=== PATIENT | female | born 1955 | race Caucasian/White ===

== ENCOUNTER 2023-05-26 12:53 | Outpatient (AMB) | payer OTHER, SELFPAY ==
--- NOTE | 2023-05-26 13:05 | MHC.OFFVIS ---
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 Patient states I guess I failed my sleep study test Allergies No Known Allergies Allergy (Verified 05/26/23 13:09) HPI HPI Comments History of Present Illness Details 67 y/o female patient with HTN, HLD and chronic cough presents for new in-person visit for sleep consultation. Pt reports chronic cough, and gasping arousals. She was evaluated by agile coach and supply service worker. Pt reports she was diagnosed with thyroid nodule, and also recommended to have sleep study. Pt had a home sleep study done but it was inconclusive. She does not sleep on her back, sleeps on her side. Pt reports snoring, and frequent arousals, and nocturia. She reports daytime sleepiness and takes a nap occasionally. Sleep questionnaire: Have you ever been diagnosed with a sleep disorder? No. Have you ever had a sleep study in the past? Yes, had a home sleep study done, but it was inconclusive. Have you ever been treated for a sleep disorder? No. Do you take medications for a sleep disorder? No. Do you snore? Yes. Do you wake up gasping at night? Rarely. Do you have episodes of apneas? No. If yes, are they witnessed? No. Do you have episodes of nocturnal chest pain or dyspnea? No. Do you have difficulty initiating sleep? No. Do you have difficulty maintaining sleep? Yes. Do you wake up tired? Yes, sometimes. Do you have headaches upon awakening? Rarely. Do you wake up with dry mouth or throat? Yes. Do you have GERD? Yes. Do you have nocturia? Yes. Do you have nocturnal leg cramps? No. Do you have symptoms of restless legs? No. Do you act out your dreams? No. Sleep hygiene questionnaire: What is your usual sleep routine? Usual bedtime is at 9-10 pm; Usual wake up time is at 7 am. Do you take naps? Yes, sometimes. Is your sleep environment cool, dark, and quiet? Yes. Do you exercise? Two days a week. for an hour. Do you take caffeine or other stimulants? Coffee in the morning. Do you use electronics in bed? Yes. What is your work schedule? two days a week, 10-12 pm. Hypersomnolence questionnaire: Do you have daytime tiredness or fatigue? Yes. Do you easily fall asleep when inactive? Yes. Have you ever had episodes of sudden weakness? No. Have you ever had episodes of sudden weakness associated with strong emotions? No. PFSH Surgical History (Updated 05/26/23 @ 13:10 by ADOLFO Byrne) H/O: hysterectomy History of nephrectomy, right Family History (Updated 05/26/23 @ 13:12 by ADOLFO Byrne) Father Stroke Mother Ovarian cancer Diabetes Brother HTN (hypertension) Hyperlipidemia Social History (Updated 05/26/23 @ 13:12 by ADOLFO Byrne) Alcohol intake: current Patient Tobacco Use Status: Never used Tobacco Review of Systems Const All systems reviewed & are unremarkable except as noted in HPI and below ENT Reports Normal hearing present Neuro Reports Normal hearing present Physical Exam Vital Signs: Last Vital Signs Pulse 87 05/26/23 13:08 BP 124/78 05/26/23 13:08 Pulse Ox 98 05/26/23 13:08 Oxygen Delivery Method Room Air 05/26/23 13:08 BMI result Body Mass Index 31.0 Const General: cooperative Nutritional Appearance: overweight Orientation/consciousness: patient oriented x3 Neck Neck: Yes full ROM and Yes supple Resp Effort & Inspection: normal respiratory effort and able to speak in complete sentences Neuro General: patient oriented x3 Cranial nerves: Yes Bilaterally intact EOM present, Yes Normal facial strength present, Yes Midline tongue present, Yes Symmetric palate elevation present, Yes Normal hearing present and Yes Ability to bilaterally rotate head present Cognition (Neuro): normal cognition Gait exam (Neuro): Antalgic gait present Motor exam (neuro): 5/5 motor strength present throughout, Pronator motor function not present and no tremor noted Psych Appearance: grossly normal Mental Status: mental status grossly normal Speech and movement: Normal speech and movement present Affect: normal affect Attitude: cooperative Assessment & Plan Assessment & Plan (1) Daytime sleepiness: Code(s): R40.0 - Somnolence (2) Chronic cough: Code(s): R05.3 - Chronic cough (3) Snoring: Code(s): R06.83 - Snoring Plan Pt is advised to undergo in lab sleep study to assess for sleep apnea. Will f/u with pt after study to discuss results and appropriate treatment options. Sleep hygiene education provided. Advised patient to limit screen time before bedtime. Pt to call with any worsening concerns or questions. Orders: Orders RT PSG in-lab sleep study Today E04.1 - Nontoxic single thyroid nodule, E66.9 - Obesity, unspecified, R05.3 - Chronic cough, R06.83 - Snoring, R40.0 - Somnolence Coding Level of Care Code New Pt Level 3 (78497) Diagnoses Daytime sleepiness R40.0 Chronic cough R05.3 Snoring R06.83
[2023-05-26 13:08] VITALS: BP 124/78; PULSE 87; O2SAT 98; BMI 31.0
== END 2023-05-26 13:35 | disposition home or self-care (01) ==
LOC: HO.HSMC 12:53
PROVIDERS: PCP Nurse Practitioner Family; Visit Provider Nurse Practitioner Family
DX: R40.0 Somnolence (principal); R05.3 Chronic cough; R06.83 Snoring
CPT/HCPCS: 99203

== ENCOUNTER → 2023-05-26 12:53 | Outpatient (BNVA) | payer OTHER, SELFPAY | PROVIDERS: PCP Nurse Practitioner Family; Visit Provider Nurse Practitioner Family | DX: R40.0 Somnolence (principal); R05.3 Chronic cough; R06.83 Snoring | CPT/HCPCS: 99202 ==

== ENCOUNTER → 2023-06-16 19:30 | Outpatient (REF) | payer OTHER, SELFPAY | LOC: HO.SL 19:30 | PROVIDERS: Visit Provider Nurse Practitioner Family | DX: G47.33 Obstructive sleep apnea (adult) (pediatric) (principal); R06.83 Snoring; R40.0 Somnolence; E66.9 Obesity, unspecified | CPT/HCPCS: 95810 ==

== ENCOUNTER → 2023-06-16 22:05 | Outpatient (BNV) | payer OTHER, SELFPAY | PROVIDERS: Visit Provider Psychiatry & Neurology Neurology | DX: G47.33 Obstructive sleep apnea (adult) (pediatric) (principal) | CPT/HCPCS: 95810 ==

== ENCOUNTER 2024-04-20 13:46 | Outpatient (AMB) | payer OTHER, SELFPAY ==
--- NOTE | 2024-04-20 13:43 | A.OFFVIS_ITS ---
Vital Signs 04/20/24 13:48 Height 5 ft 6 in Weight 193 lb 8 oz BMI 31.2 BP 120/88 Blood Pressure Location Lt brachial Position Sitting Pulse 87 Pulse Source Pulse Oximeter Pulse Oximetry (%) 96 Oxygen Delivery Method Room Air Intake Visit Reasons: chronic cough Allergies No Known Allergies Allergy (Verified 04/20/24 13:52) HPI HPI chronic cough: Details: Talia is a pleasant 68 year old female, minimal smoker with 5 pack year history, with underlying chronic cough, renal cancer s/p right nephrectomy, and uterine fibroid s/p hysterectomy. She was referred by PCP for evaluation. She reports chronic cough since 2021 with occasional wheezing which resolved spontaneously for a few months then restarted a few months ago. She denies history of asthma or prior diagnosis of COPD. PFT 08/2022 spirometry normal, decreased ERV likely related to BMI and normal DLCO. CT chest 05/2023 reported resolution of several small pulmonary nodules and mild bibasliar scarring. She has trialed multiple OTC medications for GERD and allergies with no effect. She reports prior allergy testing many years ago which was positive for multiple allergens. She endorses significant post nasal drip, nasal congestion and watery eyes. She has 3 parakeets at home and has frequent exposure to dog. She reports significant second hand smoke exposure as a child. She reports brother with asthma otherwise no pertinent family history. She was active in the [employer] x 6 years with prolonged exposure to jet fuel. She recently had an endoscopy which was reportedly negative, performed at [facility], will obtain report. She was trialed on omeprazole many years ago for reflux symptoms however discontinued as she was concerned w ith possible nephrotoxic effects. [facility] Surgical History (Updated 05/26/23 @ 13:10 by ADOLFO Byrne) History of nephrectomy, right H/O: hysterectomy Family History (Updated 05/26/23 @ 13:12 by ADOLFO Byrne) Father Stroke Mother Ovarian cancer Diabetes Brother HTN (hypertension) Hyperlipidemia Social History (Updated 04/20/24 @ 13:52 by Krista Echeverria [facility]) Alcohol intake: current Patient Tobacco Use Status: Former Tobacco user Review of Systems Const Denies chills, Denies excessive sweating, Denies fever(s), Denies headache(s) and Denies night sweats Eyes Denies dry eyes, Denies irritation and Denies itchy eyes ENT Reports Normal hearing present and Denies headache(s) Card Denies chest pain, Denies chest pain at rest, Denies chest pain with activity, Denies claudication, Denies leg edema, Denies orthopnea and Denies paroxysmal nocturnal dyspnea Resp Denies chest congestion, Denies pain on inspiration, Denies pain with cough and Denies stridor Musc Denies myalgias Neuro Reports Normal hearing present and Denies headache(s) Endo Denies excessive sweating Roberto Carlos/Lymph Denies lymphadenopathy Aller/Immun Denies itchy eyes and Denies seasonal rhinorrhea Physical Exam Vital Signs: Last Vital Signs Pulse 87 04/20/24 13:48 BP 120/88 04/20/24 13:48 Pulse Ox 96 04/20/24 13:48 Oxygen Delivery Method Room Air 04/20/24 13:48 BMI result Body Mass Index 31.2 Const General: cooperative, healthy appearing, comfortable, no acute distress, well developed and alert Orientation/consciousness: patient oriented x3 Limitations: no limitations HEENT Head: Yes normal to inspection, Yes normocephalic and Yes atraumatic Ears: hearing grossly normal bilaterally and external ears normal Eyes General: appearance normal, both eyes and all related structures Eyelids: Yes eyelids normal Sclerae: sclerae normal EOM: EOMs intact bilaterally Neck Neck: Yes normal visual inspection and Yes no lymphadenopathy Lymphatic: no lymphadenopathy noted Chest Chest palpation & inspection: normal inspection of the chest Resp Other: persistent throat clearing and wet cough throughout visit, bibasilar inspiratory crackles, otherwise clear Effort & Inspection: normal respiratory effort, able to speak in complete sentences, no audible wheezes, no stridor, not tachypneic, no tripod positioning and no use of accessory muscles Cardio Jugular venous distension: no JVD Rate: regular rate Rhythm: regular rhythm Skin Other: warm, dry General skin exam: no rashes or lesions noted Neuro General: patient oriented x3 Cranial nerves: Yes Normal hearing present Cognition (Neuro): normal cognition Gait exam (Neuro): Normal gait present Extrem General: Yes normal to inspection, Yes capillary refill normal, Yes no clubbing, cyanosis or edema and Yes no pedal edema Psych Appearance: grossly normal and well kempt Speech and movement: Normal speech and movement present and Clear speech present Affect: normal affect Attitude: cooperative Thought process: Normal thought process present Thought content: Normal thought content present Insight: Good insight present (Psych) Judgement: Good judgement present (Psych) Assessment & Plan Assessment & Plan (1) Chronic cough: Code(s): R05.3 - Chronic cough Category: Medical (2) Environmental allergies: Code(s): Z91.09 - Other allergy status, other than to drugs and biological substances Category: Medical Plan Talia presents with chronic cough of unclear etiology. PFT normal. Chest CT report revealed mild bibasilar scarring with faint inspiratory crackles on exam, will obtain actual images to review. She reports significant post nasal drip and reflux symptoms, not using any effective treatments. Recent endoscopy reportedly unremarkable, will obtain reports. Will send for RAST to assess for an allergic component including IgE to birds. Will also trial nasal ipratriopium for post nasal drip. All questions were answered and patient is in agreement of plan. Will follow up to review results or sooner if needed. Orders: Orders Complete Blood Count Auto Diff Today Z91.09 - Other allergy status, other than to drugs and biological substances Immunoglobulin E Today Z91.09 - Other allergy status, other than to drugs and biological substances AMB Office Procedure Misc Today Z91.09 - Other allergy status, other than to drugs and biological substances Resp Allergy Profile Region I Today Z91.09 - Other allergy status, other than to drugs and biological substances Medications: New ipratropium bromide administer into each nostril 2 sprays intranasal BID 30 mL 2RF Coding Level of Care Code New Pt Level 4 (65793) Diagnoses Chronic cough R05.3 Environmental allergies Z91.09
[2024-04-20 13:48] VITALS: BP 120/88; PULSE 87; O2SAT 96; BMI 31.2
== END 2024-04-20 14:40 | disposition home or self-care (01) ==
PROVIDERS: PCP Nurse Practitioner Family; Referring Provider Nurse Practitioner Family; Visit Provider Nurse Practitioner Family
DX: R05.3 Chronic cough (principal); Z91.09 Other allergy status, other than to drugs and biological substances
CPT/HCPCS: 99204

== ENCOUNTER → 2024-04-20 13:46 | Outpatient (BNVA) | payer OTHER, SELFPAY | PROVIDERS: PCP Nurse Practitioner Family; Referring Provider Nurse Practitioner Family; Visit Provider Nurse Practitioner Family | DX: R05.3 Chronic cough (principal); Z91.09 Other allergy status, other than to drugs and biological substances | CPT/HCPCS: 99202 ==

== ENCOUNTER 2024-04-26 08:44 | Outpatient (REF) | payer OTHER, SELFPAY | END 2024-04-26 08:45 | disposition home or self-care (01) | LOC: CF 08:44 | DX: Z13.89 Encounter for screening for other disorder (principal) ==

== ENCOUNTER 2024-05-25 15:14 | Outpatient (AMB) | payer OTHER, SELFPAY ==
[2024-05-25 15:16] VITALS: BP 130/78; PULSE 95; O2SAT 97; BMI 31.5
--- NOTE | 2024-05-25 15:16 | A.OFFVIS_ITS ---
Vital Signs 05/25/24 15:16 Height 5 ft 6 in Weight 195 lb BMI 31.5 BP 130/78 Blood Pressure Location Rt brachial Position Sitting Pulse 95 Pulse Source Pulse Oximeter Pulse Oximetry (%) 97 Oxygen Delivery Method Room Air Intake Visit Reasons: chronic cough Allergies No Known Allergies Allergy (Verified 05/25/24 15:20) HPI HPI chronic cough: Details: Talia is a pleasant 68 year old female, minimal smoker with 5 pack year history, with underlying chronic cough, renal cancer s/p right nephrectomy, and uterine fibroid s/p hysterectomy. She reports chronic cough since 2021 with occasional wheezing which resolved spontaneously for a few months then restarted a few months ago. At the last visit, offered trialing an inhaler however declined. Today she is interested in trialing as she had minimal response to ipratropium nasal spray. She also notes prior dx of severe ORIANA, AHI 79, and has not been consistent with use as she has had difficulties with mask. [facility] Surgical History (Updated 05/26/23 @ 13:10 by ADOLFO Byrne) History of nephrectomy, right H/O: hysterectomy Family History (Updated 05/26/23 @ 13:12 by ADOLFO Byrne) Father Stroke Mother Ovarian cancer Diabetes Brother HTN (hypertension) Hyperlipidemia Social History Alcohol intake: current Patient Tobacco Use Status: Former Tobacco user Review of Systems Const Denies chills, Denies excessive sweating, Denies fever(s), Denies headache(s) and Denies night sweats Eyes Denies dry eyes, Denies irritation and Denies itchy eyes ENT Reports Normal hearing present and Denies headache(s) Card Denies chest pain, Denies chest pain at rest, Denies chest pain with activity, Denies claudication, Denies leg edema, Denies orthopnea and Denies paroxysmal nocturnal dyspnea Resp Denies chest congestion, Denies pain on inspiration, Denies pain with cough and Denies stridor Musc Denies myalgias Neuro Reports Normal hearing present and Denies headache(s) Endo Denies excessive sweating Roberto Carlos/Lymph Denies lymphadenopathy Aller/Immun Denies itchy eyes and Denies seasonal rhinorrhea Physical Exam Vital Signs: Last Vital Signs Pulse 95 05/25/24 15:16 BP 130/78 05/25/24 15:16 Pulse Ox 97 05/25/24 15:16 Oxygen Delivery Method Room Air 05/25/24 15:16 BMI result Body Mass Index 31.5 Const General: cooperative, healthy appearing, comfortable, no acute distress, well developed and alert Orientation/consciousness: patient oriented x3 Limitations: no limitations HEENT Head: Yes normal to inspection, Yes normocephalic and Yes atraumatic Ears: hearing grossly normal bilaterally and external ears normal Eyes General: appearance normal, both eyes and all related structures Eyelids: Yes eyelids normal Sclerae: sclerae normal EOM: EOMs intact bilaterally Neck Neck: Yes normal visual inspection and Yes no lymphadenopathy Lymphatic: no lymphadenopathy noted Chest Chest palpation & inspection: normal inspection of the chest Resp Effort & Inspection: normal respiratory effort, able to speak in complete s entences, no audible wheezes, no stridor, not tachypneic, no tripod positioning and no use of accessory muscles Auscultation: clear to auscultation bilaterally Cardio Jugular venous distension: no JVD Rate: regular rate Rhythm: regular rhythm Skin Other: warm, dry General skin exam: no rashes or lesions noted Neuro General: patient oriented x3 Cranial nerves: Yes Normal hearing present Cognition (Neuro): normal cognition Gait exam (Neuro): Normal gait present Extrem General: Yes normal to inspection, Yes capillary refill normal, Yes no clubbing, cyanosis or edema and Yes no pedal edema Psych Appearance: grossly normal and well kempt Speech and movement: Normal speech and movement present and Clear speech present Affect: normal affect Attitude: cooperative Thought process: Normal thought process present Thought content: Normal thought content present Insight: Good insight present (Psych) Judgement: Good judgement present (Psych) Assessment & Plan Assessment & Plan (1) Chronic cough: Code(s): R05.3 - Chronic cough Category: Medical (2) Environmental allergies: Code(s): Z91.09 - Other allergy status, other than to drugs and biological substances Category: Medical (3) Bronchiectasis: Code(s): J47.9 - Bronchiectasis, uncomplicated Category: Medical Plan Will trial ICS. Discussed importance of good oral hygiene to prevent thrush. She likely has a component of reflux contributing to symptoms however reluctant to try any medications for this. She reported improvements in postnasal drip with ipratropium, minimal change to cough, advised to continue. Reviewed allergy testing which was positive for parakeets, which she has at home. Discussed ways to minimize exposure. Review chest CT images which revealed mild bronchiectasis and question of bibasilar interstitial markings with possible early fibrotic changes. Will send for repeat chest CT to assess for any progression. Discussed talking with prescribing provider to send a prescription for new mask to trial with CPAP for better compliance. All questions were answered and patient is in agreement of plan. Will follow up to review results and response to inhaler, or sooner if needed. Medications: New fluticasone propionate 110 mcg/actuation administer with spacer 2 puffs inhalation BID 12 grams 3RF Coding Level of Care Code Est Pt Level 4 (81685) Diagnoses Chronic cough R05.3 Environmental allergies Z91.09 Bronchiectasis J47.9
== END 2024-05-25 16:08 | disposition home or self-care (01) ==
PROVIDERS: PCP Nurse Practitioner Family; Visit Provider Nurse Practitioner Family
DX: R05.3 Chronic cough (principal); Z91.09 Other allergy status, other than to drugs and biological substances; J47.9 Bronchiectasis, uncomplicated
CPT/HCPCS: 99214

== ENCOUNTER → 2024-05-25 15:14 | Outpatient (BNVA) | payer OTHER, SELFPAY | PROVIDERS: PCP Nurse Practitioner Family; Visit Provider Nurse Practitioner Family | DX: Z91.09 Other allergy status, other than to drugs and biological substances (principal); J47.9 Bronchiectasis, uncomplicated; R05.3 Chronic cough | CPT/HCPCS: 99212 ==

== ENCOUNTER 2024-08-24 14:10 | Outpatient (AMB) | payer OTHER, SELFPAY ==
[2024-08-24 14:11] VITALS: BP 142/76; PULSE 78; O2SAT 96; BMI 32.5
--- NOTE | 2024-08-24 14:11 | A.OFFVIS_ITS ---
Vital Signs 08/24/24 14:11 Height 5 ft 6 in Weight 201 lb 6 oz BMI 32.5 BP 142/76 H Blood Pressure Location Lt brachial Position Sitting Pulse 78 Pulse Source Pulse Oximeter Pulse Oximetry (%) 96 Oxygen Delivery Method Room Air Intake Visit Reasons: Cough/CT Follow Up Allergies No Known Allergies Allergy (Verified 08/24/24 14:14) HPI HPI Cough/CT Follow Up: Details: Talia is a pleasant 68 year old female, minimal smoker with 5 pack year history, with underlying chronic cough, bronchiectasis, renal cancer s/p right nephrectomy, and uterine fibroid s/p hysterectomy. She reports chronic cough since 2021 with occasional wheezing that has waxed and waned. She had used ipratropium nasal spray for postnasal drip and Alvesco with minimal effect however discontinued both of them is not interested in trialing other medications. She also notes prior dx of severe ORIANA, AHI 79. She has tried CPAP therapy however cannot tolerate and [facility] inspire [facility]. She denies any visits to urgent care hospitalizations related to respiratory distress since the last visit. [facility] Surgical History (Updated 05/26/23 @ 13:10 by ADOLFO Byrne) History of nephrectomy, right H/O: hysterectomy Family History (Updated 05/26/23 @ 13:12 by ADOLFO Byrne) Father Stroke Mother Ovarian cancer Diabetes Brother HTN (hypertension) Hyperlipidemia Social History Alcohol intake: current Patient Tobacco Use Status: Former Tobacco user Review of Systems Const Denies chills, Denies excessive sweating, Denies fever(s), Denies headache(s) and Denies night sweats Eyes Reports dry eyes, Denies irritation and Reports itchy eyes ENT Reports Normal hearing present and Denies headache(s) Card Denies chest pain, Denies chest pain at rest, Denies chest pain with activity, Denies claudication, Denies leg edema, Denies orthopnea and Denies paroxysmal nocturnal dyspnea Resp Denies chest congestion, Denies pain on inspiration, Denies pain with cough and Denies stridor Musc Denies myalgias Neuro Reports Normal hearing present and Denies headache(s) Endo Denies excessive sweating Roberto Carlos/Lymph Denies lymphadenopathy Aller/Immun Reports itchy eyes and Denies seasonal rhinorrhea Physical Exam Vital Signs: Last Vital Signs Pulse 78 08/24/24 14:11 BP 142/76 H 08/24/24 14:11 Pulse Ox 96 08/24/24 14:11 Oxygen Delivery Method Room Air 08/24/24 14:11 BMI result Body Mass Index 32.5 Const General: cooperative, healthy appearing, comfortable, no acute distress, well developed and alert Orientation/consciousness: patient oriented x3 Limitations: no limitations HEENT Head: Yes normal to inspection, Yes normocephalic and Yes atraumatic Ears: hearing grossly normal bilaterally and external ears normal Eyes General: appearance normal, both eyes and all related structures Eyelids: Yes eyelids normal Sclerae: sclerae normal EOM: EOMs intact bilaterally Neck Neck: Yes normal visual inspection and Yes no lymphadenopathy Lymphatic: no lymphadenopathy noted Chest Chest palpation & inspection: normal inspection of the chest Resp Effort & Inspection: normal respiratory effort, able to speak in complete sentences, no audible wheezes, no stridor, not tachypneic, no tripod positioning and no use of accessory muscles Auscultation: clear to auscultation bilaterally Cardio Jugular venous distension: no JVD Rate: regular rate Rhythm: regular rhythm Skin Other: warm, dry General skin exam: no rashes or lesions noted Neuro General: patient oriented x3 Cranial nerves: Yes Normal hearing present Cognition (Neuro): normal cognition Gait exam (Neuro): Normal gait present Extrem General: Yes normal to inspection, Yes capillary refill normal, Yes no clubbing, cyanosis or edema and Yes no pedal edema Psych Appearance: grossly normal and well kempt Speech and movement: Normal speech and movement present and Clear speech present Affect: normal affect Attitude: cooperative Thought process: Normal thought process present Thought content: Normal thought content present Insight: Good insight present (Psych) Judgement: Good judgement present (Psych) Assessment & Plan Assessment & Plan (1) Bronchiectasis: Code(s): J47.9 - Bronchiectasis, uncomplicated Category: Medical (2) Chronic cough: Code(s): R05.3 - Chronic cough Category: Medical (3) Environmental allergies: Code(s): Z91.09 - Other allergy status, other than to drugs and biological substances Category: Medical (4) Pulmonary nodule: Code(s): R91.1 - Solitary pulmonary nodule Category: Medical (5) Nocturnal hypoxemia: Code(s): G47.34 - Idiopathic sleep related nonobstructive alveolar hypoventilation Category: Medical (6) Severe obstructive sleep apnea: Code(s): G47.33 - Obstructive sleep apnea (adult) (pediatric) Category: Medical Plan Reviewed chest CT which revealed multiple pulmonary nodules less than 5 mm, stable bibasilar interstitial markings and mild bronchiectasis. Will repeat in 1 year to assess stability of the nodules. Patient with history of severe ORIANA unable to tolerate CPAP therapy. Will send for overnight oximetry to assess for nocturnal hypoxemia as she states she would be agreeable to supplemental oxygen if required. Again discussed trialing an ICS/LABA however she declined. All questions were answered and patient is in agreement of plan. Will follow up to review results or sooner if needed. Orders: Orders CT chest wo IV con 10 Months J47.9 - Bronchiectasis, uncomplicated, R91.1 - Solitary pulmonary nodule Overnight Pulse Oximetry Today G47.33 - Obstructive sleep apnea (adult) (pediatric), G47.34 - Idiopathic sleep related nonobstructive alveolar hypoventilation Coding Level of Care Code Est Pt Level 4 (83413) Diagnoses Bronchiectasis J47.9 Chronic cough R05.3 Environmental allergies Z91.09 Pulmonary nodule R91.1 Nocturnal hypoxemia G47.34 Severe obstructive sleep apnea G47.33
== END 2024-08-24 14:36 | disposition home or self-care (01) ==
PROVIDERS: PCP Nurse Practitioner Family; Visit Provider Nurse Practitioner Family
DX: J47.9 Bronchiectasis, uncomplicated (principal); R05.3 Chronic cough; Z91.09 Other allergy status, other than to drugs and biological substances; R91.1 Solitary pulmonary nodule; G47.34 Idiopathic sleep related nonobstructive alveolar hypoventilation; G47.33 Obstructive sleep apnea (adult) (pediatric)
CPT/HCPCS: 99214

== ENCOUNTER → 2024-08-24 14:10 | Outpatient (BNVA) | payer OTHER, SELFPAY | PROVIDERS: PCP Nurse Practitioner Family; Visit Provider Nurse Practitioner Family | DX: J47.9 Bronchiectasis, uncomplicated (principal); R05.3 Chronic cough; G47.33 Obstructive sleep apnea (adult) (pediatric); Z91.09 Other allergy status, other than to drugs and biological substances; R91.1 Solitary pulmonary nodule; G47.34 Idiopathic sleep related nonobstructive alveolar hypoventilation | CPT/HCPCS: 99212 ==

== ENCOUNTER 2024-11-30 14:17 | Outpatient (AMB) | payer OTHER, SELFPAY ==
--- NOTE | 2024-11-30 14:22 | MHC.OFFVIS ---
Vital Signs 11/30/24 14:23 Height 5 ft 6 in BP 136/70 Blood Pressure Location Rt brachial Position Sitting Pulse 93 Pulse Oximetry (%) 95 Oxygen Delivery Method Room Air Intake Visit Reasons: cough, overnight oximetry FU State Assessed Properties Director Required: No Doughnut Machine Operator: Doughnut Machine Operator offered & declined Accompanied by: Self / Same As Patient Allergies No Known Allergies Allergy (Verified 11/30/24 14:28) Medication List - Last Reconciled 11/30/24 by Ailyn Bentley LPN ciclesonide 80 mcg/actuation ([facility]) 2 puffs inhalation BID estradiol 0.01%(0.1mg/gram) ([facility]) 1 g vaginal .QOD ipratropium bromide 2 sprays intranasal BID losartan 25 mg PO DAILY rosuvastatin 5 mg PO DAILY HPI HPI cough, overnight oximetry FU: Details: Talia is a pleasant 69 year old female, minimal smoker with 5 pack year history, with underlying chronic cough, bronchiectasis, renal cancer s/p right nephrectomy, and uterine fibroid s/p hysterectomy. She reports chronic cough since 2021 with occasional wheezing that has waxed and waned. She was started on ICS however discontinued as she feels symptoms are mild. She continues to use ipratropium nasal spray for postnasal drip with good effects. She has a h/o severe ORIANA, AHI 79, with nocturnal hypoxemia with a CPAP at home but can not tolerate. She is not interested in trialing different masks to see if she can better tolerate. She is interested in evaluation for Inspire. She denies any visits to urgent care hospitalizations related to respiratory distress since the last visit. [facility] Surgical History (Updated 05/26/23 @ 13:10 by ADOLFO Byrne) History of nephrectomy, right H/O: hysterectomy Family History (Updated 05/26/23 @ 13:12 by ADOLFO Byrne) Father Stroke Mother Ovarian cancer Diabetes Brother HTN (hypertension) Hyperlipidemia Social History Alcohol intake: current Patient Tobacco Use Status: Former Tobacco user Review of Systems Const Denies chills, Denies excessive sweating, Denies fever(s), Denies headache(s) and Denies night sweats Eyes Reports dry eyes, Denies irritation and Reports itchy eyes ENT Reports Normal hearing present and Denies headache(s) Card Denies chest pain, Denies chest pain at rest, Denies chest pain with activity, Denies claudication, Denies leg edema, Denies orthopnea and Denies paroxysmal nocturnal dyspnea Resp Denies chest congestion, Denies pain on inspiration, Denies pain with cough and Denies stridor Musc Denies myalgias Neuro Reports Normal hearing present and Denies headache(s) Endo Denies excessive sweating Orberto Carlos/Lymph Denies lymphadenopathy Aller/Immun Reports itchy eyes and Denies seasonal rhinorrhea Physical Exam Vital Signs: Last Vital Signs Pulse 93 11/30/24 14:23 BP 136/70 11/30/24 14:23 Pulse Ox 95 11/30/24 14:23 Oxygen Delivery Method Room Air 11/30/24 14:23 Const General: cooperative, healthy appearing, comfortable, no acute distress, well developed and alert Orientation/consciousness: patient oriented x3 Limitations: no limitations HEENT Head: Yes normal to inspection, Yes normocephalic and Yes atraumatic Ears: hearing grossly normal bilaterally and external ears normal Eyes General: appearance normal, both eyes and all related structures Eyelids: Yes eyelids normal Sclerae: sclerae normal EOM: EOMs intact bilaterally Neck Neck: Yes normal visual inspection and Yes no lymphadenopathy Lymphatic: no lymphadenopathy noted Chest Chest palpation & inspection: normal inspection of the chest Resp Effort & Inspection: normal respiratory effort, able to speak in complete sentences, no audible wheezes, no stridor, not tachypneic, no tripod positioning and no use of accessory muscles Auscultation: clear to auscultation bilaterally Cardio Jugular venous distension: no JVD Rate: regular rate Rhythm: regular rhythm Skin Other: warm, dry General skin exam: no rashes or lesions noted Neuro General: patient oriented x3 Cranial nerves: Yes Normal hearing present Cognition (Neuro): normal cognition Gait exam (Neuro): Normal gait present Extrem General: Yes normal to inspection, Yes capillary refill normal, Yes no clubbing, cyanosis or edema and Yes no pedal edema Psych Appearance: grossly normal and well kempt Speech and movement: Normal speech and movement present and Clear speech present Affect: normal affect Attitude: cooperative Thought process: Normal thought process present Thought content: Normal thought content present Insight: Good insight present (Psych) Judgement: Good judgement present (Psych) Assessment & Plan Assessment & Plan (1) Bronchiectasis: Code(s): J47.9 - Bronchiectasis, uncomplicated Category: Medical (2) Chronic cough: Code(s): R05.3 - Chronic cough Category: Medical (3) Environmental allergies: Code(s): Z91.09 - Other allergy status, other than to drugs and biological substances Category: Medical (4) Pulmonary nodule: Code(s): R91.1 - Solitary pulmonary nodule Category: Medical (5) Nocturnal hypoxemia: Code(s): G47.34 - Idiopathic sleep related nonobstructive alveolar hypoventilation Category: Medical (6) Severe obstructive sleep apnea: Code(s): G47.33 - Obstructive sleep apnea (adult) (pediatric) Category: Medical Plan Prior chest CT which revealed multiple pulmonary nodules less than 5 mm, stable bibasilar interstitial markings and mild bronchiectasis. Order for repeat chest CT entered at last visit to assess stability of the nodules, to be performed 06/2025. Patient with history of severe ORIANA unable to tolerate CPAP therapy overnight oximetry revealed <88% for 28% of the time however [facility] not [facility] as patient has a dx of ORIANA. She is interested in referral for Inspire device, will enter this. All questions were answered and patient is in agreement of plan. Will follow up to review results or sooner if needed. Orders: Referrals Plastic Surgery Referral G47.33 - Obstructive sleep apnea (adult) (pediatric) Coding Level of Care Code Est Pt Level 4 (30769) Diagnoses Bronchiectasis J47.9 Chronic cough R05.3 Environmental allergies Z91.09 Pulmonary nodule R91.1 Nocturnal hypoxemia G47.34 Severe obstructive sleep apnea G47.33
[2024-11-30 14:23] VITALS: BP 136/70; PULSE 93; O2SAT 95
== END 2024-11-30 14:51 | disposition home or self-care (01) ==
LOC: HO.HPSW 14:18
PROVIDERS: PCP Nurse Practitioner Family; Visit Provider Nurse Practitioner Family
DX: J47.9 Bronchiectasis, uncomplicated (principal); R05.3 Chronic cough; Z91.09 Other allergy status, other than to drugs and biological substances; R91.1 Solitary pulmonary nodule; G47.34 Idiopathic sleep related nonobstructive alveolar hypoventilation; G47.33 Obstructive sleep apnea (adult) (pediatric)
CPT/HCPCS: 99214

== ENCOUNTER → 2024-11-30 14:17 | Outpatient (BNVA) | payer OTHER, SELFPAY | PROVIDERS: PCP Nurse Practitioner Family; Visit Provider Nurse Practitioner Family | DX: J47.9 Bronchiectasis, uncomplicated (principal); G47.34 Idiopathic sleep related nonobstructive alveolar hypoventilation; G47.33 Obstructive sleep apnea (adult) (pediatric); R91.1 Solitary pulmonary nodule; Z91.09 Other allergy status, other than to drugs and biological substances | CPT/HCPCS: 99212 ==